=== PATIENT | male | born 1955 | race Caucasian/White ===

== ENCOUNTER 2019-09-25 09:32 | Observation (INO) ==
--- NOTE | 2019-09-18 15:27 | Anesthesiology Consultation ---
Date of Service September 18, 2019 Assessment & Plan (1) Encounter for pre-operative examination: Patient seen in [facility] for this surgery 06/18/19; however, his preop lab work revealed blood sugar of 654 with a hemoglobin A1c of 14.1. Surgery was cancelled and he was referred to [facility] endocrinology to get his blood sugars better controlled prior to surgery. Insulin added to regimen. Glucose 150 on pre-op labs 09/11. CHECK BSG AM DOS COVID Status: Patient denies any known exposure/contacts, any symptoms or testing for coronavirus. He rents a house in [place], and did travel to [place], [place], returning to [place] 08/31/19. Chart Review Chart Review: Acceptable Risk for Surgery (pending discussion with ELIAS re: travel hx) and Patient NOT seen in Pre Admission Testing History Surgery Operation Date: 09/25/19 11:45 Proposed Procedures p Laparoscopic Robotic Assisted Radical Retropubic Prostatectomy, Possible Open, Possible Pelvic Lymph Node Dissection, Possible Suprapubic Tube Placement - Jim Quintero MD Height/Weight Height: 5 ft 9 in Weight: 70.307 kg Allergies Allergy/AdvReac Type Severity Reaction Status Date / Time No Known Allergies Allergy Verified 06/26/19 13:38 Medications Home Medications Medication Instructions Recorded Confirmed Last Taken amitriptyline 10 mg tablet 10 mg PO HS 06/01/19 09/18/19 Unknown aspirin 81 mg tablet,delayed 81 mg PO QAM 06/01/19 09/18/19 Unknown release dulaglutide 1.5 mg/0.5 mL 1.5 mg SQ WK 06/01/19 09/18/19 Unknown subcutaneous pen injector empagliflozin 10 mg tablet 10 mg PO QAM 06/01/19 09/18/19 Unknown ropinirole 0.25 mg tablet 0.25 mg PO HS 06/01/19 09/18/19 Unknown BD Ultra-Fine Macey Pen Needle 32 #100 ea NS 06/26/19 06/26/19 Unknown gauge x 5/32" Basaglar KwikPen U-100 Insulin 100 20 units SQ DAILY 30 Days #15 ml NS 06/27/19 09/18/19 Unknown unit/mL (3 mL) subcutaneous cyclobenzaprine 10 mg PO TID PRN 09/18/19 09/18/19 Unknown dulaglutide [Trulicity] 5 mg SUBCUT WK 09/18/19 09/18/19 Unknown levothyroxine 125 mcg PO QAM 09/18/19 09/18/19 Unknown lisinopril 5 mg PO QPM 09/18/19 09/18/19 Unknown metformin 500 mg PO UD 09/18/19 09/18/19 Unknown omega 4-rjj-mzl-fish oil [Fish Oil] 1 cap PO DAILY 09/18/19 09/18/19 Unknown pantoprazole 40 mg PO QPM 09/18/19 09/18/19 Unknown simvastatin 40 mg PO HS 09/18/19 09/18/19 Unknown tadalafil 10 mg PO DAILY PRN 09/18/19 09/18/19 Unknown tamsulosin 0.4 mg PO DAILY 09/18/19 09/18/19 Unknown Past Medical History Medical History Diabetes mellitus, type 2 Pre-op labs on 06/2019 = critically elevated glucose of 654. Sent to ER by PCP, A1C > 14. Subsequently seen by endocrine and started on insulin. Glucose now 150 on pre-op testing. Hyperlipidemia (Chronic) Hypertension (Chronic) Hypothyroidism (Chronic) Prostate cancer Restless leg syndrome Past Family History Family History Brother Prostate cancer Hypertension Diabetes Father Prostate cancer Heart disease Diabetes Mother Diabetes Heart disease Past Surgical History Surgical History H/O shoulder surgery RT History of appendectomy History of bunionectomy RT History of colonoscopy History of tonsillectomy History of tooth extraction Hx of LASIK Hx of prostate biopsy Social History Smoking Status: Current some day smoker tobacco type: cigars Smoking cigarettes per day: SMOKES CIGARS OCCASIONALLY Do You Dip or Chew Tobacco: No Hx Alcohol Use: Yes Alcohol type: beer alcohol intake frequency: a few times a month Hx Substance Use: No substance use type: does not use Testing Laboratory Results Blood Type O Positive 09/12/19 10:36 Antibody Screen NEGATIVE 09/12/19 10:36 09/12/19 WBC: 7.7 H/H: 15.2/44.0 PLATELETS: 215 SODIUM: 139 POTASSIUM: 4.1 CHLORIDE: 104 CO2: 30 BUN: 16 CREATININE: 0.96 GLUCOSE: 150 A1C (06/18/19) 14.1% -- patient since seen by endocrinology and started on insulin. Daily glucose now under control, but A1C not updated. Electrocardiogram Date: 06/18/19 Findings: + ST @ (108) Nonspecific T wave abnormality. Chest X-Ray Date: 06/18/19 Findings: + NAD
[~2019-09-25 09:32] MED LIST: CEFAZOLIN 2000MG 2,000 MG/15 ML SYR IV SCH; CEFAZOLIN 3000MG 72.5 ML IV SCH; HEPARIN SOD 5,000 UNIT/0.5 ML VIAL SQ SCH; LR 15ML/HR IV SCH
[2019-09-25] MEDS ORDERED: fentaNYL citrate 100 MCG/2 ML VIAL ONE ×2 (10:15→14:20)
[2019-09-25] MEDS ORDERED: ONDANSETRON INJ 2 MG/ML 2 ML VIAL ONE (10:15)
[2019-09-25] MEDS ORDERED: LIDOCAINE HCL 2% 2 ML VIAL/AMP(20MG/ML) INFIL ONE (10:15)
[2019-09-25] MEDS ORDERED: GLYCOPYRROLATE 0.2 MG/ML VIAL ONE (10:15)
[2019-09-25] MEDS ORDERED: NEOSTIGMINE METHYLSULFATE 5 MG/5 ML SYR ONE (10:15)
[2019-09-25] MEDS ORDERED: DEXAMETHASONE SOD INJ 4 MG/ML VIAL ONE (10:15)
[2019-09-25] MEDS ORDERED: PROPOFOL IV EMULSION 10 MG/ML 20 ML VIAL IV ONE (10:15)
[2019-09-25] MEDS ORDERED: MIDAZOLAM HCL 1 MG/ML 2ML VIAL ONE (10:15)
[2019-09-25] MEDS ORDERED: SUCCINYLCHOLINE CHLORIDE 20 MG/ML 10 ML VIAL ONE (10:16)
--- NOTE | 2019-09-25 11:25 | History & Physical Report ---
Date of Service September 25, 2019 Assessment & Plan (1) Carcinoma of prostate: plan to move forward with prostatectomy - discussed surgery again today History of Present Illness Primary Care Provider: Nasir Tyson Prostate cancer - here for prostatectomy previously with uncontrolled DM - much better control over the past 3 mos Allergies Allergy/AdvReac Type Severity Reaction Status Date / Time No Known Allergies Allergy Verified 09/25/19 09:49 Home Medications Home Medications Medication Instructions Recorded Confirmed Type amitriptyline 10 mg tablet 10 mg PO HS 06/01/19 09/25/19 History aspirin 81 mg tablet,delayed 81 mg PO QAM 06/01/19 09/25/19 History release dulaglutide 1.5 mg/0.5 mL 1.5 mg SQ WK 06/01/19 09/25/19 History subcutaneous pen injector empagliflozin 10 mg tablet 10 mg PO QAM 06/01/19 09/25/19 History ropinirole 0.25 mg tablet 0.25 mg PO HS 06/01/19 09/25/19 History BD Ultra-Fine Macey Pen Needle 32 #100 ea NS 06/26/19 06/26/19 Rx gauge x 5/32" Sarah SánchezikPen U-100 Insulin 100 20 units SQ DAILY 30 Days #15 ml NS 06/27/19 09/25/19 Rx unit/mL (3 mL) subcutaneous cyclobenzaprine 10 mg PO TID PRN 09/18/19 09/25/19 History dulaglutide [Trulicity] 5 mg SUBCUT WK 09/18/19 09/25/19 History levothyroxine 125 mcg PO QAM 09/18/19 09/25/19 History lisinopril 5 mg PO QPM 09/18/19 09/25/19 History metformin 500 mg PO UD 09/18/19 09/25/19 History omega 5-yte-abx-fish oil [Fish Oil] 1 cap PO DAILY 09/18/19 09/25/19 History pantoprazole 40 mg PO QPM 09/18/19 09/25/19 History simvastatin 40 mg PO HS 09/18/19 09/25/19 History tadalafil 10 mg PO DAILY PRN 09/18/19 09/25/19 History tamsulosin 0.4 mg PO DAILY 09/18/19 09/25/19 History Past Med/Surg History Medical History Diabetes mellitus, type 2 Pre-op labs on 06/2019 = critically elevated glucose of 654. Sent to ER by PCP, A1C > 14. Subsequently seen by endocrine and started on insulin. Glucose now 150 on pre-op testing. Hyperlipidemia (Chronic) Hypertension (Chronic) Hypothyroidism (Chronic) Prostate cancer Restless leg syndrome Surgical History H/O shoulder surgery RT History of appendectomy History of bunionectomy RT History of colonoscopy History of tonsillectomy History of tooth extraction Hx of LASIK Hx of prostate biopsy Family History Brother Prostate cancer Hypertension Diabetes Father Prostate cancer Heart disease Diabetes Mother Diabetes Heart disease Social History Preferred Language: Slovenian Communication Ability: Effective Licensed Mental Health Counselor Required: No Beliefs That Will Affect Care: None marital status: Current Living Situation: Significant Other current occupational status: employed Feels Safe at Home: Yes Safety Concerns: Feels Safe At This Time Smoking Status: Current some day smoker Tobacco Type: cigars ; Cigarettes Per Day: SMOKES CIGARS OCCASIONALLY ; Do You Dip or Chew Tobacco: No ; Second Hand Exposure: No ; Tobacco Cessation Education Requested by Patient: No Hx Alcohol Use: Yes Alcohol type: beer Hx Substance Use: No Review of Systems All systems reviewed & are unremarkable except as noted in HPI & below Physical Exam Constitutional: well developed and well nourished Neck: neck nontender Respiratory: normal respiratory effort; no respiratory distress and does not use accessory muscles Cardiovascular: Rate/Rhythm: regular rate Vessels: radial pulses present Extremities: no edema Gastrointestinal (Abdomen): Inspection/Auscultation: abdomen normal to inspection Percussion/Palpation: abdomen soft; abdomen nontender and no guarding Musculoskeletal: Head/Neck/Chest: normocephalic and head atraumatic Extremities: extremities normal to inspection Skin: no rashes and no lesions Trauma: no evidence of skin trauma Neurologic: awake; not obtunded Speech / Cognition: normal speech Motor/Sensory: no tremor Psychiatric: Orientation: alert and oriented x 3 Genitourinary: no CVA tenderness Lymphatic: no lymphadenopathy Results & Data Vital Signs (Past 12 Hours) Vital Signs Temp Pulse Resp BP Pulse Ox 09/25/19 10:01 36.8 C 89 18 130/84 100
[2019-09-25] MEDS ORDERED: BUPIVACAINE 0.5 % 5 MG/1 ML MPF 30ML VIAL ONE (11:54)
[2019-09-25] MEDS ORDERED: CISATRACURIUM BESYLATE IV SOLN 2 MG/ML 10 ML VIAL IV ONE (12:04)
[2019-09-25] MEDS ORDERED: HYDROmorphone INJ 2 MG/ML SYR/VIAL ONE (13:12)
--- NOTE | 2019-09-25 15:55 | Operative Report ---
[facility] Post Operative Report Pre & Post Diagnosis Operation Date: 09/25/19 11:50 Pre-Op Diagnosis: Prostate Cancer Post-Op Diagnosis: Prostate Cancer I identified the patient and participated in the time-out.: Yes Procedure Operation Date: 09/25/19 11:50 Actual Procedures p Laparoscopic Robotic Assisted Radical Retropubic Prostatectomy, Pelvic Lymph Node Dissection(Not Applicable) - Jim Quintero MD Surgeon Varghese Quintero MD [employer] Daniel Dougherty and Caroline Farah Estimated Blood Loss 100 Findings Consistent with Post-Op Diagnosis Specimens 1. Periprostatic fat 2. Right pelvic lymph nodes 3. Left pelvic lymph nodes 4. Prostate and seminal vesicles Description of Procedure The patient was identified in the preoperative holding area, appropriate informed consents were reviewed and completed, and he was transported to the operating suite. Subcutaneous heparin was administered in the pre-operative holding area. Upon arrival in the operating suite, he received appropriate antibiotics and general anesthesia. He was positioned in dorsal lithotomy, a B&O suppository was inserted after digital rectal exam, and he was prepped and draped in standard fashion. A Freed catheter was inserted in the sterile field. A Veress needle was passed per umbilicus with uniform insufflation of the abdomen to 15mmHg. He was placed in steep Trendelenburg position. A periumbilical incision was then made to accommodate a 12mm Visiport with 10mm 0degree laparoscope. Inspection of the abdomen was carried out, and there was no evidence of traumatic entry or injury secondary to the Veress needle. After confirming a clear anterior abdominal wall, ports were subsequently placed in standard robotic prostatectomy fashion without incident. To begin the robotic portion of the case, the left lateral aspect of the sigmoid was mobilized off of the left pelvic side wall to allow the pouch of Noé to be appropriately visualized. I then made an incision in the pouch of Noé, overlying the seminal vesicles. Both SVs as well as the ampullae of the vasa were entirely dissected, with the vasa transected 3cm from the prostate. The medial umbilical ligaments were then controlled with bipolar electrocautery just inferior to the umbilicus. Following cauterization, they were divided utilizing monopolar cautery. A peritoneal incision was carried from this location to the medial aspect of the internal inguinal rings bilaterally with care to avoid opening through the ring. This incision was concluded when the vas deferens was reached. Dissection of the bladder and prostate off of the posterior aspect of the pubic arch was completed allowing full visualization of the prostate. The fat overlying the prostate was removed en bloc and passed off the table as a specimen labeled "periprostatic fat". The endopelvic fascia was cleared during this portion of the procedure, and subsequently opened - first on the right and then the left. The incision through the endopelvic fascia began near the prostate-bladder junction and was carried to the apex with extreme care to preserve all lateral levator musculature as well as the periurethral musculature and sphincter complex. I additionally preserved the puboprostatic ligaments. I then controlled the DVC with a 3-0 V-lock suture in overlapping/ figure of 8 fashion. The lymph node dissection was then conducted. External iliac vessels were identified on the pelvic side wall. The packet of fat and lymphatic tissue that resides just under the iliac vein was elevated and off of the vein with a split and roll technique. The packet was dissected laterally to the circumflex vein and distally to the obturator nerve which was preserved. The proximal aspect of the packet was carried towards the bifurcation of the iliac vessels. A combination of monopolar and bipolar cautery were used to assist with control. After completing the dissection on both sides, the packets were collected and passed off of the table as specimens labeled "pelvic lymph nodes". My attention then returned to the prostate, with identification of the bladder neck aided by gentle traction on the Freed catheter and lateral to medial pressure at the presumed level of the bladder neck with the robotic instruments. An anterior cystotomy was made, the Freed balloon deflated and the catheter guided through the incision to allow anterior retraction. I attempted to preserve maximal bladder neck musculature as I circumferentially dissected around the bladder neck. After incision through the posterior aspect of the mucosa, the dissection was carried through detrusor muscle until the bilateral ampullae of the vasa were identified. The previously dissected vasa and SVs were brought through the incision and used to elevated the prostate anteriorly. A posterior plane behind the prostate was then developed - splitting Denonvilliers's fascia. This dissection was carried as far as possible towards the apex as well as far as possible laterally. An incision in the lateral prostatic fascia was then made bilaterally to facilitate control of the vascular pedicles and preservation of the nerve bundles. Vasculature running along the posterior/lateral aspect of the prostate was preserved as well as the tissue containing the nerves. Nerve sparing was more aggressive on left than the right. The pedicles were then controlled with a series of Weck clips. The apical attachments of the prostate were remaining at that stage. The DVC was divided after control with bipolar cautery over the prostate. Continuous inspection from anterior and lateral views allowed me to closely follow the apical contour of the prostate and maximally preserve urethral length and tissue. The prostate was entirely freed at that point, and collected in an EndoCatch bag before being moved out of the field of vision. Hemostasis was confirmed and anastomosis of the bladder and urethra was completed utilizing a double armed V- Lock stitch. A new Freed catheter was inserted and the anastomosis tested with irrigation. There was no evidence of leak. A sonu style stitch was placed bilaterally to functionally marsupialize the area of the lymph node dissection. The robot was undocked, the specimen extracted through expansion of the alvin- umbilical camera port. The fascia was closed with a series of 0-PDS figure of 8 stitches. The right clinic office assistant port was closed in two layers - with a figure of 8 0-Vicryl to reapproximate the fascia followed by 4-0 Monocryl to close the skin. Monocryl was used to close all other skin incisions. All wounds were dressed with Dermabond. The case was concluded and the patient taken to the PACU in stable condition. Caroline Farah and Daniel Dougherty assisted throughout the case from incision to closure I attest to the content of the Intraoperative Record and any orders documented therein. Any exceptions are noted below.
[2019-09-25] MEDS ORDERED: PROMETHAZINE HCL 12.5 MG in SODIUM CHLORIDE 0.9% 50 ML IV PRN (16:24)
[2019-09-25] MEDS ORDERED: HYDROmorphone INJ 1 MG/ML SYRINGE IV PRN (16:24)
[2019-09-25] MEDS ORDERED: ePHEDrine sulfate 50 MG/ML AMP IV PRN (16:24)
[2019-09-25] MEDS ORDERED: fentaNYL citrate 100 MCG/2 ML VIAL IV PRN (16:24)
[2019-09-25] MEDS ORDERED: LABETALOL HCL IV 5 MG/ML 20ML IV PRN (16:24)
[2019-09-25] MEDS ORDERED: ATROPINE SULFATE 0.1 MG/ML 10ML SYR IV PRN (16:24)
[2019-09-25] MEDS ORDERED: NALOXONE HCL 0.4 MG/1 ML VIAL/CARP IV PRN (16:24)
[2019-09-25] MEDS ORDERED: FLUMAZENIL 0.1 MG/1 ML 10 ML VIAL IV PRN (16:24)
[2019-09-25] MEDS ORDERED: ONDANSETRON INJ 2 MG/ML 2 ML VIAL IV PRN ×2 (16:24→17:36)
--- NOTE | 2019-09-25 16:37 | Anesthesiology Progress Note ---
Date of Service September 25, 2019 Anesthesia Post Procedure Vital Signs Vital Signs: Temp Pulse Pulse Resp BP BP Pulse Ox 09/25/19 16:26 63 14 158/93 H 97 09/25/19 16:19 36.2 C L 67 16 145/97 H 100 09/25/19 10:01 36.8 C 89 18 130/84 100 Transfer of Care Handoff Completed per policy Notes Mental Status: alert / awake / arousable Patient Amnestic to Procedure: Yes Nausea / Vomiting: adequately controlled Pain: adequately controlled Airway Patency, RR, SpO2: stable & adequate BP & HR: stable & adequate Hydration State: stable & adequate Anesthetic Complications: no major complications apparent
[2019-09-25 16:50] LABS: Basophils # (auto) 0.03 K/uL (0-0.2); Basophils % (auto) 0.2 %; Eosinophils # (auto) 0.04 K/uL (0-0.5); Eosinophils % (auto) 0.3 %; Hematocrit (blood only) 43.3 % (42-52); Hemoglobin 14.5 g/dL (14.0-18.0); Immature Granulocytes # (auto) 0.03 K/uL (0.00-0.02); Immature Granulocytes % (auto) 0.2 %; Lymphocytes # (auto) 1.17 K/uL (1.2-3.4); Lymphocytes % (auto) 8.7 %; Mean Corpuscular Volume 89.5 fL (80-100); Mean Platelet Volume 9.9 fL (7.4-10.4); Monocytes # (auto) 0.11 K/uL (0.11-0.59); Monocytes % (auto) 0.8 %; Neutrophils # (auto) 12.08 K/uL (1.4-6.5); Neutrophils % (auto) 89.8 %; Platelet Count 227 K/uL (130-400); RDW Coefficient of Variation 12.4 % (11.5-14.5); RDW Standard Deviation 40.6 fL (36.4-46.3); Red Blood Count 4.84 M/uL (4.7-6.1); White Blood Count 13.46 K/uL (4.8-10.8)
[2019-09-25 16:56] LABS: Mean Corpuscular Hgb Conc 33.5 g/dL (32-36)
[2019-09-25 17:07] LABS: BUN Creatinine Ratio 12.2 (10-20); Calcium 8.5 mg/dl (8.5-10.1); Est GFR (African American) 96.6; Est GFR (Non-African American) 83.3; Potassium 4.3 mmol/L (3.5-5.1)
[2019-09-25] MEDS ORDERED: OXYCODONE HCL IR 5 MG TAB (IMMEDIATE RELEASE) PO PRN ×2 (17:36)
[2019-09-25] MEDS ORDERED: DULAGLUTIDE SQ SCH (17:36)
[2019-09-25] MEDS ORDERED: ACETAMINOPHEN 325 MG TAB PO PRN (17:36)
[2019-09-25] MEDS ORDERED: KETOROLAC TROMETHAMINE 15 MG/ML VIAL IV PRN (17:36)
[2019-09-25] MEDS ORDERED: NON-FORMULARY MEDICATION (Dulaglutide [Trulicity] 1.5 MG) SQ SCH (17:36)
[2019-09-25] MEDS ORDERED: NON-FORMULARY MEDICATION (Tadalafil 10 MG) PO PRN (17:36)
[2019-09-25] MEDS ORDERED: MoRPHine SULFATE 2 MG/ML CARP IV PRN ×2 (17:36)
[2019-09-25] MEDS: LACTATED RINGER'S 1,000 ML IV SCH (17:50)
[2019-09-25] MEDS ORDERED: CYCLOBENZAPRINE HCL 10 MG TAB PO PRN (17:52)
[2019-09-25] MEDS ORDERED: PHARMACY GLYCEMIC MGMT CONSULT PRN (18:17)
[2019-09-25] MEDS ORDERED: DEXTROSE 50% 50 ML SYRINGE IV PRN (18:30)
[2019-09-25] MEDS ORDERED: GLUCAGON FOR INJ 1 MG VIAL SQ PRN (18:30)
[2019-09-25] MEDS ORDERED: GLUCOSE 40% GEL 15 GM TUBE PO PRN (18:30)
[2019-09-25] MEDS ORDERED: GLUCOSE 10 TABS/TUBE PO PRN (18:30)
[2019-09-25] MEDS ORDERED: CARBOHYDRATES FOR HYPOGLYCEMIA PO PRN (18:30)
[2019-09-25] MEDS: INSULIN ASPART 100 UNITS/ML 3 ML PEN SC SCH ×2 (19:20→21:10)
[2019-09-25] MEDS ORDERED: AMITRIPTYLINE HCL 10 MG TAB PO SCH (21:00)
[2019-09-25] MEDS ORDERED: lisinopriL 5 MG TAB PO SCH (21:00)
[2019-09-25] MEDS ORDERED: PANTOprazole 40 MG TAB PO SCH (21:00)
[2019-09-25] MEDS ORDERED: ROPINIROLE HCL 0.25 MG TABLET PO SCH (21:00)
[2019-09-25] MEDS ORDERED: SIMVASTATIN 40 MG TAB PO SCH (21:00)
[2019-09-25] MEDS: CEFAZOLIN 2000MG 2,000 MG/15 ML SYR IV SCH (21:05)
[2019-09-25] MEDS ORDERED: INSULIN GLARGINE SOLOSTAR 100 UNITS/ML 3 ML PEN SC ONE (21:15)
[2019-09-26] MEDS: LACTATED RINGER'S 1,000 ML IV SCH ×2 (00:25→08:06)
[2019-09-26] MEDS: INSULIN ASPART 100 UNITS/ML 3 ML PEN SC SCH ×3 (00:27→08:35)
[2019-09-26] MEDS: CEFAZOLIN 2000MG 2,000 MG/15 ML SYR IV SCH (03:31)
[2019-09-26 06:15] LABS: Basophils # (auto) 0.01 K/uL (0-0.2); Basophils % (auto) 0.1 %; Eosinophils # (auto) 0.01 K/uL (0-0.5); Eosinophils % (auto) 0.1 %; Hematocrit (blood only) 40.9 % (42-52); Hemoglobin 13.8 g/dL (14.0-18.0); Immature Granulocytes # (auto) 0.02 K/uL (0.00-0.02); Immature Granulocytes % (auto) 0.2 %; Lymphocytes # (auto) 2.28 K/uL (1.2-3.4); Lymphocytes % (auto) 19.8 %; Mean Corpuscular Hemoglobin 30.1 pg (25-34); Mean Corpuscular Hgb Conc 33.7 g/dL (32-36); Mean Corpuscular Volume 89.3 fL (80-100); Monocytes # (auto) 0.51 K/uL (0.11-0.59); Monocytes % (auto) 4.4 %; Neutrophils # (auto) 8.69 K/uL (1.4-6.5); Neutrophils % (auto) 75.4 %; Platelet Count 210 K/uL (130-400); RDW Coefficient of Variation 12.4 % (11.5-14.5); Red Blood Count 4.58 M/uL (4.7-6.1); White Blood Count 11.52 K/uL (4.8-10.8)
[2019-09-26 06:25] LABS: Estimated Average Glucose 180 mg/dl; Hemoglobin A1C 7.9 % (4.5-5.6)
[2019-09-26] MEDS ORDERED: LEVOTHYROXINE SODIUM 125 MCG TABLET PO SCH (06:30)
[2019-09-26 06:47] LABS: BUN Creatinine Ratio 11.6 (10-20); Calcium 8.9 mg/dl (8.5-10.1); Est GFR (African American) 96.6; Est GFR (Non-African American) 83.3; Potassium 3.9 mmol/L (3.5-5.1)
--- NOTE | 2019-09-26 08:33 | Urology Progress Note ---
Date of Service September 26, 2019 Assessment & Plan (1) Carcinoma of prostate: POD #1 s/p prostatectomy - cont ambulation - BG well controlled - advance diet - labs appropriate - plan for d/c home later today Subjective doing very well no pain ambulated urine clear asking for food Review of Systems Review of Systems: All systems reviewed & are unremarkable except as noted in HPI & below Physical Exam Physical Exam: incisions appropriate urine clear Results & Data Vital Signs (Past 12 Hours) Vital Signs Temp Pulse Pulse Resp BP Pulse Ox 09/26/19 07:55 36.8 C 88 18 149/77 H 92 09/26/19 07:46 37.1 C 69 16 103/62 95 09/26/19 03:40 36.8 C 63 16 104/69 95 09/25/19 23:36 36.9 C 64 16 122/73 95 PG Care Time/CCT Total # of Minutes Spent Total Time Spent with Patient: Total time spent is greater than 50% in coordination of care (as documented) at patient's floor/unit and/or counseling patient: Coding Level of Care Code None Diagnoses Carcinoma of prostate C61
[2019-09-26] MEDS ORDERED: OMEGA-3 (PURIFIED FISH OIL) 1 GM CAP PO SCH (09:00)
[2019-09-26] MEDS ORDERED: TAMSULOSIN HCL 0.4 MG CAP PO SCH (09:00)
[2019-09-26] MEDS ORDERED: ASPIRIN 81 MG ECTAB PO SCH (09:00)
[2019-09-26] MEDS ORDERED: NON-FORMULARY MEDICATION (Empagliflozin [Jardiance] 10 MG) PO SCH (09:00)
--- NOTE | 2019-10-06 07:35 | Discharge Summary ---
Date of Service October 06, 2019 Admission HPI Per Admitting Provider Prostate cancer - here for prostatectomy previously with uncontrolled DM - much better control over the past 3 mos Principal Diagnosis Prostate cancer Discharge Data Allergies Allergy/AdvReac Type Severity Reaction Status Date / Time No Known Allergies Allergy Verified 09/26/19 08:15 Procedures Performed Operation Date: 09/25/19 11:50 Actual Procedures p Laparoscopic Robotic Assisted Radical Retropubic Prostatectomy, Pelvic Lymph Node Dissection(Not Applicable) - Jim Quintero MD Hospital Course (1) Carcinoma of prostate: Patient admitted for a robotic prostatectomy - details of the procedure as dictated previously in my operative report - in summary, he tolerated the procedure very well - he was in stable condition overnight with appropriate urine output and stable labs - he was subsequently discharged home with a bob catheter - he was in stable condition at the time of discharge Total Time Total Time Spent Total Time Spent (In Minutes): 15 Total Time Includes: Examination of the Patient, Discharge Planning and Medication Reconciliation Discharge Plan Discharge Items Patient Disposition: Home - Self-Care Reason For Visit: Prostate Cancer Discharge Diagnosis: Prostate Cancer Activity: Per Instructions section Lifting: No more than 25 pounds Bathing Comment: No tub baths or soaking, okay to shower tonight. Sexual Activity: Wait until after follow-up appointment Exercise/Sports: Wait until after follow-up appointment Driving/Machine Use: Do not drive while taking narcotic pain medication Non-emergency contact: Surgeon and Urologist Call non-emergency contact if: your pain is concerning for you, your temperature is above 101.5, your wound has increased redness and your wound has increased drainage Follow-up/Referrals: Nasir Tyson D.O. [Primary Care Provider] - [facility],Nurse [Physician] - 10/02/19 2:30 pm Diet: Carb Consistent or DM2 Diet Comment: Continue diabetic diet Addtl Attending Provider Instructions: Please take all medications as prescribed and keep all follow-ups as scheduled. Please call our office at [phone] with any questions, concerns or need to reschedule appointments for any reason. We are happy to assist you We have sent an antibiotic to your pharmacy of choice. Please begin antibiotic as prescribed the day BEFORE your scheduled voiding trial at [facility]. Please continue antibiotic every 12 hours through the day AFTER your voiding trial. Activity: We recommend having someone with you for the first few days after surgery to help care for you. For the first 2 weeks after surgery, we would like you to get up and walk around your house. However, we recommend limit physical activity that would increase your heart rate. This will allow your body to rest and heal. Take naps if you feel tired. Don't lift anything heavier than 10 pounds, mow the law or ride a bicycle until your follow-up appointment. Please avoid long car rides. Home Care: Unless directed otherwise, drink 6 to 8 glasses of water a day (enough to keep your urine light colored). This will also help keep a healthy flow of urine. We recommend using a stool softener for the first two weeks to avoid constipation. Bob Catheter or Suprapubic Catheter care: Keep the catheter well secured with either a leg back or leg strap with large bag. Empty your bag when it's about half full. You may notice some blood in the bag. This is normal after surgery and while the catheter is in place. Use mild soap (such as Dove or Dial) and water to wash the catheter and the head of your penis daily, or more frequently if needed. Return to your normal diet, we encourage good protein intake to promote healing. You may shower as normal. Please avoid tub baths or soaking until catheter r emoved and incisions well healed. Wearing sweat pants while you have the catheter is recommended, they will be more comfortable. Follow-up Your follow up appointments for having your catheter removed, and follow up with your physician should already be scheduled. If you have any questions regarding this, please contact our office. Your final pathology report will be discussed at your physician follow-up appointment. Call [facility] at [phone] right away if you have any of the following: Chest pain or trouble breathing (call [phone] or go to the hospital) Fever of 101F or higher, uncontrolled vomiting Heavy bleeding, clots, or bright red blood from the catheter Catheter that falls out or stops draining Foul-smelling discharge from your catheter Redness, swelling, warmth, or increased pain at your incision site Drainage, pus, or bleeding from your incision Pending Studies at Discharge: Yes Studies:: Pathology Stand-Alone Forms: My [facility] 5 Minutes, Smoking Cessation Medications and DC Order Prescriptions: New docusate sodium [Colace] 100 mg capsule 100 mg PO BID Qty: 60 RF: 0 oxycodone-acetaminophen [Percocet] 5-325 mg tablet 1 tab PO TID PRN (Reason: pain) Qty: 14 RF: 0 Continued (DME) pen needle, diabetic [BD Ultra-Fine Macey Pen Needle] 32 gauge x 5/32" needle See Rx Instructions .ROUTE .MEDSUPPLY Qty: 100 RF: 5 amitriptyline 10 mg tablet 10 mg PO HS RF: 0 aspirin 81 mg tablet,delayed release (DR/EC) 81 mg PO QAM RF: 0 Jardiance 10 mg tablet 10 mg PO QAM RF: 0 ropinirole 5 mg tablet 10 mg PO DAILY RF: 0 lmmslpkndgin-erczmymt-maojkh Tablet 1 tab PO DAILY RF: 0 cyclobenzaprine 10 mg Tablet 10 mg PO TID PRN (Reason: Pain) RF: 0 pantoprazole 40 mg Tablet,Delayed Release (Dr/Ec) 40 mg PO QPM RF: 0 levothyroxine 125 mcg Tablet 125 mcg PO QAM RF: 0 lisinopril 5 mg Tablet 5 mg PO QPM RF: 0 tadalafil 10 mg Tablet 10 mg PO DAILY PRN (Reason: .) RF: 0 omega 3-ikx-ojt-fish oil [Fish Oil] 1,000 mg (120 mg-180 mg) Capsule 1 cap PO DAILY RF: 0 Discontinued tamsulosin 0.4 mg Capsule 0.4 mg PO DAILY RF: 0 No Action (DME) blood sugar diagnostic [Accu-Chek Guide test strips] Strip See Rx Instructions .ROUTE .MEDSUPPLY Qty: 200 RF: 1 Basaglar KwikPen U-100 Insulin 100 unit/mL (3 mL) insulin pen 20 units SQ DAILY 90 Days Qty: 30 RF: 1 metformin 500 mg tablet 1,000 mg PO BID Qty: 360 RF: 1 simvastatin 40 mg tablet 40 mg PO HS Qty: 90 RF: 1 Trulicity 1.5 mg/0.5 mL pen injector 1.5 mg SQ WK Qty: 6 RF: 1 Discharge Orders: Discharge Order (Routine); Ordered 09/26/19 Ordered By: Caroline Brandt/Other Patient Handouts: Diabetes Type 2 Managing Admission Data Admit Date/Time: 09/25/19 17:14 Attending Provider: Jim Quintero Admit Provider: Jim Quintero Primary Care Provider: Nasir Tyson Other Interventions: Discharge Summary Assessment (RN) Last Done: 09/26/19 09:48 DC Date/Time DO NOT enter until pt leaves facility: 09/26/19 12:12 Coding Level of Care Code D/C Day Management <30 mins Diagnoses Carcinoma of prostate C61
== END 2019-09-26 12:12 | disposition home or self-care (01) ==
LOC: ASU 09:32 → 3E 17:14 → INTOOBSV 17:14